=== PATIENT | female | born 1960 | race Caucasian/White ===

== ENCOUNTER → 2025-02-26 | Outpatient (REF) | payer OTHER ==
[~2025-02-26] MED LIST: ATENOLOL50 MG PO; LEVEMIR100 UNIT/1 SQ; LISINOPRIL PO; LISINOPRIL10 MG PO; METFORMIN HCL1000 MG PO; NOVOLIN N100 UNIT/1 SQ; ULTRAM 50MG50 MG PO; ZOFRAN ODT4 MG SL
== END ==
LOC: CARD 10:37
PROVIDERS: ATTEND Podiatrist Foot & Ankle Surgery
DX: M89.8X7 Other specified disorders of bone, ankle and foot (principal)
CPT/HCPCS: 93925

== ENCOUNTER → 2025-06-24 | Day surgery (SDC) | payer OTHER ==
[2025-06-22 15:06] LABS: INR 1.01
[2025-06-22 15:15] LABS: EST GLOMERULAR FILTRATION RATE 66.0 ML/MIN (>=60)
[2025-06-23 12:54] LABS: BASOPHILS % 0.7 % (0.0-1.0); EOSINOPHILS % 1.3 % (0.0-6.0); LYMPHOCYTES % 26.6 % (18.0-39.1); MONOCYTES % 6.9 % (4.4-11.3); NEUTROPHILS % 64.4 % (38.7-80.0); RED CELL DISTRIBUTION WIDTH 13.8 % (11.7-14.4)
[~2025-06-24] MED LIST changes: +BASAGLAR K100 UNIT/1 SC; +BUPROPION XL150 MG PO; +BUSPIRONE HCL10 MG PO; +COREG12.5 MG PO; +DEXAMETHASONE SOD PHOS INJ 4 MG/ML SDV ONE; +EPHEDRINE SULFATE INJ 50 MG/ML VIAL ONE; +FARXIGA10 MG PO; +FENTANYL CITRATE/PF 100MCG/2 ML INJ ONE; +KETOROLAC TROMETHAMINE 30 MG/ML VIAL ONE; +LIDOCAINE HCL 2% LOCAL INJ 5 ML SDV VIAL INJ ONE; +MIDAZOLAM HCL 2 MG/2 ML VIAL ONE; +ONDANSETRON HCL INJ 2MG/ML 2ML 2 MG/ML VIAL ONE; +OZEMPIC2 MG/0.75 SC; +PROPOFOL IV EMULSION 10 MG/ML 20 ML VIAL ONE; +SEVOFLURANE INHAL SOLN 250 ML PEN BTL ONE; +SUCCINYLCHOLINE CHLORIDE 20 MG/ML 10ML VIAL ONE
[2025-06-24] MEDS: LACTATED RINGER'S 1,000 ML ONE (06:13)
[2025-06-24] MEDS: CEFAZOLIN SODIUM 2 GM ONE (06:13)
[2025-06-24 08:50] VITALS: BP 134/66; PULSE 72; RESP 16; O2SAT 96
== END | disposition home or self-care (01) ==
LOC: OR 05:41
PROVIDERS: ATTEND Podiatrist Foot & Ankle Surgery
DX: M89.8X7 Other specified disorders of bone, ankle and foot (principal); E11.9 Type 2 diabetes mellitus without complications; I10 Essential (primary) hypertension; E78.5 Hyperlipidemia, unspecified; J44.9 Chronic obstructive pulmonary disease, unspecified; K74.60 Unspecified cirrhosis of liver; F32.A Depression, unspecified; F41.9 Anxiety disorder, unspecified; K21.9 Gastro-esophageal reflux disease without esophagitis; Z01.812 Encounter for preprocedural laboratory examination; Z01.818 Encounter for other preprocedural examination; Z79.84 Long term (current) use of oral hypoglycemic drugs; Z79.85 Long-term (current) use of injectable non-insulin antidiabetic drugs; Z79.4 Long term (current) use of insulin; Z79.899 Other long term (current) drug therapy
CPT/HCPCS: 28122; 36415 ×3; 71046; 80053; 82948; 85025; 85610; 85730; 88304; 88311; J0330; J1100; J1885; J2003; J2250; J2405; J2704; J3010; J7121